=== PATIENT | male | born 1955 | race Caucasian/White ===

== ENCOUNTER 2017-01-26 08:33 | Emergency (ER) | payer MEDICARE ==
[2017-01-26 08:54] VITALS: BP 175/89
[2017-01-26] MEDS ORDERED: DECADRON IM ONE (09:26)
[2017-01-26] MEDS ORDERED: CIPRODEX TP SCH (09:26)
[2017-01-26] MEDS ORDERED: LEVAQUIN PO ONE (09:28)
--- NOTE | 2017-01-26 09:30 | Emergency Department Report ---
ED ENT HPI - General Chief complaint: Earache Stated complaint: RT EAR PAIN/ RT SIDE FACE SWOLLEN Time Seen by Provider: 01/26/17 09:05 Source: patient Mode of arrival: Ambulatory Limitations: Physical Limitation - History of Present Illness MD complaint: ear pain -: Gradual Location: R ear Severity: moderate Severity scale (0 -10): 9 Quality: aching Consistency: constant Improves with: none Worsens with: none Associated Symptoms: discharge from ear. denies: fever, cough, gum swelling, toothache, pain with swallowing, sore throat, tinnitus, hearing loss, rhinorrhea (7d ear ache. no fever. non ill appearing. ) - Related Data Previous Rx's Medication Instructions Recorded Last Taken Type Cipro/Dexameth 0.3/0.1% [Ciprodex 4 drops OT BID #1 bottle 01/26/17 Unknown Rx OTIC] Ciprofloxacin HCl [Ciprofloxacin 500 mg PO Q12H #20 tab 01/26/17 Unknown Rx TAB] traMADol [Ultram] 50 mg PO Q6HR PRN #10 tablet 01/26/17 Unknown Rx Allergies Allergy/AdvReac Type Severity Reaction Status Date / Time No Known Allergies Allergy Unverified 01/26/17 08:47 ED Dental HPI - General Chief complaint: Earache Stated complaint: RT EAR PAIN/ RT SIDE FACE SWOLLEN Time Seen by Provider: 01/26/17 09:05 Source: patient Mode of arrival: Ambulatory Limitations: Physical Limitation - Related Data Previous Rx's Medication Instructions Recorded Last Taken Type Cipro/Dexameth 0.3/0.1% [Ciprodex 4 drops OT BID #1 bottle 01/26/17 Unknown Rx OTIC] Ciprofloxacin HCl [Ciprofloxacin 500 mg PO Q12H #20 tab 01/26/17 Unknown Rx TAB] traMADol [Ultram] 50 mg PO Q6HR PRN #10 tablet 01/26/17 Unknown Rx Allergies Allergy/AdvReac Type Severity Reaction Status Date / Time No Known Allergies Allergy Unverified 01/26/17 08:47 ED Review of Systems ROS: Stated complaint: RT EAR PAIN/ RT SIDE FACE SWOLLEN Other details as noted in HPI Comment: All other systems reviewed and negative Constitutional: no symptoms reported, see HPI. denies: chills, diaphoresis, fever, malaise, weakness Eyes: as per HPI. denies: eye pain, eye discharge, vision change ENT: as per HPI, ear pain. denies: throat pain, dental pain (no teeth), hearing loss, epistaxis, congestion Respiratory: no symptoms reported, see HPI. denies: cough, orthopnea Cardiovascular: as per HPI. denies: chest pain, palpitations, dyspnea on exertion, orthopnea Endocrine: no symptoms reported, see HPI. denies: excessive sweating, flushing , intolerance to cold, intolerance to heat Gastrointestinal: as per HPI. denies: abdominal pain, nausea, vomiting Genitourinary: as per HPI. denies: urgency, dysuria Musculoskeletal: as per HPI. denies: back pain Skin: as per HPI. denies: rash, lesions Neurological: as per HPI. denies: headache, weakness Psychiatric: as per HPI. denies: anxiety, depression Hematological/Lymphatic: as per HPI. denies: easy bleeding ED Past Medical Hx - Past Medical History Hx Hypertension: Yes (NO MEDS) Additional medical history: CHRONIC BACK PAIN - Surgical History Hx Appendectomy: Yes (CHILD) Additional Surgical History: BACK SURGERY - Family History Family history: no significant - Social History Smoking Status: Current Every Day Smoker Substance Use Type: Alcohol - Medications Home Medications: Home Medications Medication Instructions Recorded Confirmed Last Taken Type Cipro/Dexameth 0.3/0.1% [Ciprodex 4 drops OT BID #1 bottle 01/26/17 Unknown Rx OTIC] Ciprofloxacin HCl [Ciprofloxacin 500 mg PO Q12H #20 tab 01/26/17 Unknown Rx TAB] traMADol [Ultram] 50 mg PO Q6HR PRN #10 tablet 01/26/17 Unknown Rx ED Physical Exam - General Limitations: Physical Limitation General appearance: alert - Head Head exam: Present: atraumatic - Eye Eye exam: Present: PERRL - ENT ENT exam: Present: normal exam, normal orophraynx, mucous membranes moist. Absent: mucous membranes dry, normal external ear exam - Expanded ENT Exam Expanded Ear exam: Present: other (swelling of soft tissue of the r ear). Absent: auricular hematoma, auricular trauma TM/Canal exam: Erythema: Right TM, Canal Discharge: Right TM (clear no odor no open skin), Canal Tenderness: Right TM Mouth exam: Present: normal external inspection, tongue normal. Absent: drooling, trismus, muffled voice, tongue elevation, laceration Teeth exam: Present: normal inspection, other (no teeth). Absent: dental caries Throat exam: Positive: normal inspection. Negative: tonsillar erythema, tonsillomegaly, tonsillar exudate, R peritonsillar mass, L peritonsillar mass - Neck Neck exam: Present: normal inspection, full ROM, lymphadenopathy (r pre auricular). Absent: tenderness, meningismus - Respiratory Respiratory exam: Present: normal lung sounds bilaterally. Absent: respiratory distress, wheezes, rales - Cardiovascular Cardiovascular Exam: Present: regular rate - GI/Abdominal GI/Abdominal exam: Present: soft - Rectal Rectal exam: Present: deferred - Extremities Exam Extremities exam: Present: normal inspection, other (debility he reports cbp. uses cane) - Back Exam Back exam: Present: normal inspection - Neurological Exam Neurological exam: Present: alert, altered, oriented X3 - Psychiatric Psychiatric exam: Present: normal affect, normal mood - Skin Skin exam: Present: warm, dry, intact, normal color ED Course Vital Signs 01/26/17 08:51 Temperature 98.8 F Pulse Rate 89 Respiratory 18 Rate Blood Pressure 175/89 O2 Sat by Pulse 100 Oximetry - Reevaluation(s) Reevaluation #1: 01/26/17 10:04 see MDM section medicated per rn dc poc reviewed pt verbalizes understanding ED Medical Decision Making - Medical Decision Making to er r ear pain several days clear drainage swelling of canal tm intact hearing intact no wax swelling ant auricular nodes no fever non ill appearing hx wax impactions in ear no facial drooping closes eyes swallowing and speaking wo difficulty no pain over mastoid or parotid areas. - Differential Diagnosis mastoiditis/parotidis/bells palsy/ om/oe Critical care attestation.: If time is entered above; I have spent that time in minutes in the direct care of this critically ill patient, excluding procedure time. ED Disposition Clinical Impression: External otitis of right ear, Otalgia of right ear Disposition: DC- TO HOME OR SELFCARE Is pt being admited?: No Does the pt Need Aspirin: No Condition: Stable Instructions: Otitis Externa (ED), Otitis Media (ED) Additional Instructions: warm compresses to ear do not stick anything in ear take meds as ordered follow up pcp or ENT this week. Referrals: PRIMARY CARE,MD [Primary Care Provider] - 3-5 Days Time of Disposition: 10:08
== END 2017-01-26 10:58 | disposition home or self-care (01) ==
LOC: ED 08:33
DX: H66.91 Otitis media, unspecified, right ear (principal); H92.01 Otalgia, right ear; I10 Essential (primary) hypertension; G89.29 Other chronic pain; F17.200 Nicotine dependence, unspecified, uncomplicated
CPT/HCPCS: 96372; 99282; J1100

== ENCOUNTER 2018-04-07 12:46 | Emergency (ER) | payer MEDICARE ==
[2018-04-07] MEDS ORDERED: DECADRON IM ONE (14:54)
[2018-04-07] MEDS ORDERED: BENADRYL PO ONE (14:54)
--- NOTE | 2018-04-07 14:58 | Emergency Department Report ---
ED Rash HPI - HPI Chief Complaint: Skin Rash Stated Complaint: POISON ROBERT Time Seen by Provider: 04/07/18 14:49 ED Review of Systems ROS: Stated complaint: POISON ROBERT Other details as noted in HPI Comment: All other systems reviewed and negative Constitutional: denies: chills, fever Eyes: denies: eye pain ENT: ear pain. denies: throat pain Respiratory: no symptoms reported Cardiovascular: as per HPI. denies: chest pain Endocrine: no symptoms reported. denies: intolerance to cold Gastrointestinal: denies: abdominal pain, nausea Genitourinary: denies: urgency, dysuria Musculoskeletal: denies: back pain Skin: rash. denies: lesions Neurological: denies: headache, weakness Psychiatric: denies: anxiety, depression Hematological/Lymphatic: denies: easy bleeding ED Past Medical Hx - Past Medical History Hx Hypertension: Yes (NO MEDS) Additional medical history: CHRONIC BACK PAIN - Surgical History Hx Appendectomy: Yes (CHILD) Additional Surgical History: BACK SURGERY - Social History Smoking Status: Current Every Day Smoker Substance Use Type: Alcohol - Medications Home Medications: Home Medications Medication Instructions Recorded Confirmed Last Taken Type Cipro/Dexameth 0.3/0.1% [Ciprodex 4 drops OD BID #1 bottle 04/07/18 Unknown Rx OTIC] diphenhydrAMINE [Benadryl CAP] 50 mg PO BID PRN #30 capsule 04/07/18 Unknown Rx predniSONE [Deltasone] 50 mg PO QDAY #5 tab 04/07/18 Unknown Rx Rash Exam - Exam General: Vital signs noted. No distress. Alert and acting appropriately. HEENT: No Periorbital Edema, No Conjuctival Injection, No Chemosis, No Perioral Edema, No Tongue Edema, No Uvular Edema, No Compromised Airway, No Drooling Lungs: Yes Good Air Exchange, No Wheezes, No Ronchi, No Stridor, No Cough, No Labored Respirations, No Retractions, No Use of Accessory Muscles, No Other Abnormal Lung Sounds Heart: Yes Regular, No Murmur Skin: Yes Maculopapular Rash (poison robert diffuse), Yes Encrustations (r ear), No Urticarial Rash, No Morbilliform rash, No Bulla(e), No Excoriations, No Weeping, No Tenderness, No Erythema, No Edema, No Other Other: Positive: Abdomen Normal, Neurologic Normal, Musculoskeletal Normal ED Course Vital Signs 04/07/18 12:51 Temperature 98.6 F Pulse Rate 92 H Respiratory 18 Rate Blood Pressure 201/96 O2 Sat by Pulse 98 Oximetry - Reevaluation(s) Reevaluation #1: 04/07/18 14:59 bp elevated taking meds but he is agitated due to itching will follow up with pcp ED Medical Decision Making - Medical Decision Making nad vss - Differential Diagnosis poison robert; ear pain Critical care attestation.: If time is entered above; I have spent that time in minutes in the direct care of this critically ill patient, excluding procedure time. ED Disposition Clinical Impression: Poison robert, Ear pain, Otitis externa, Hypertension Disposition: TO HOME OR SELFCARE Is pt being admited?: No Does the pt Need Aspirin: No Condition: Stable Instructions: Poison Robert (ED), Hypertension (ED) Additional Instructions: meds as ordered today cool baths follow up with pcp diet and activity as tolerated Referrals: PRIMARY CARE, [Primary Care Provider] - 3-5 Days OFELIA ASIF MD [Staff Physician] - 3-5 Days Time of Disposition: 14:55
[2018-04-07 15:18] VITALS: BP 194/95
== END 2018-04-07 15:17 | disposition home or self-care (01) ==
LOC: ED 12:46
DX: L23.7 Allergic contact dermatitis due to plants, except food (principal); I10 Essential (primary) hypertension; H60.91 Unspecified otitis externa, right ear; G89.29 Other chronic pain; M54.9 Dorsalgia, unspecified; F17.200 Nicotine dependence, unspecified, uncomplicated
CPT/HCPCS: 96372; 99282; J1100

== ENCOUNTER 2018-12-06 16:34 | Emergency (ER) | payer MEDICARE ==
--- NOTE | 2018-12-06 16:44 | Emergency Department Report ---
Blank Doc - Documentation Documentation: 63 y o male presents to ed cc of rash and itching from exposure to poison carmelo denies any other sx ACC eval
[2018-12-06] MEDS ORDERED: DELTASONE PO ONE (19:42)
[2018-12-06] MEDS ORDERED: BENADRYL PO ONE (19:42)
--- NOTE | 2018-12-06 19:48 | Emergency Department Report ---
ED Rash HPI - HPI Chief Complaint: Skin Rash Stated Complaint: POISON ROBERT Time Seen by Provider: 12/06/18 16:42 Rash Symptoms: Yes Itching, No Facial Swelling, No Tongue/Oral Swelling, No Breathing Difficulties, No Choking Sensation, No Wheezing/Dyspnea, No Peeling, No Blistering, No Fever, No Lightheaded, No Malaise, No Myalgias Severity: moderate Other History: 63 y o male presents to ed cc of rash and itching from exposure to poison robert. denies any other sx ED Review of Systems ROS: Stated complaint: POISON ROBERT Other details as noted in HPI Constitutional: denies: chills, fever Eyes: denies: eye pain, eye discharge, vision change ENT: denies: ear pain, throat pain Respiratory: denies: cough, shortness of breath, wheezing Cardiovascular: denies: chest pain, palpitations Endocrine: no symptoms reported Gastrointestinal: denies: abdominal pain, nausea, diarrhea Genitourinary: denies: urgency, dysuria Musculoskeletal: denies: back pain, joint swelling, arthralgia Skin: rash (bilat upper extrem moderate erythema raised smooth no weeping no fever ) Neurological: denies: headache, weakness, paresthesias Psychiatric: denies: anxiety, depression Hematological/Lymphatic: denies: easy bleeding, easy bruising ED Past Medical Hx - Past Medical History Hx Hypertension: Yes Additional medical history: CHRONIC BACK PAIN - Surgical History Hx Appendectomy: Yes Additional Surgical History: BACK SURGERY - Social History Smoking Status: Current Every Day Smoker Substance Use Type: Alcohol - Medications Home Medications: Home Medications Medication Instructions Recorded Confirmed Last Taken Type Cipro/Dexameth 0.3/0.1% [Ciprodex 4 drops OD BID #1 bottle 04/07/18 Unknown Rx OTIC] diphenhydrAMINE [Benadryl CAP] 50 mg PO BID PRN #30 capsule 04/07/18 Unknown Rx predniSONE [Deltasone] 50 mg PO QDAY #5 tab 04/07/18 Unknown Rx Calamine/Phenol Liquid [Calamine 1 applicatio TP QID PRN #1 bottle 12/06/18 Unknown Rx Phenolated Lotion] Triamcinolone Aceton 0.1% (Nf) 1 applic TP BID 14 Days #1 tube 12/06/18 Unknown Rx [Kenalog (NF)] diphenhydrAMINE [Benadryl CAP] 25 mg PO Q6HR PRN #30 capsule 12/06/18 Unknown Rx predniSONE [Deltasone] 40 mg PO QDAY 5 Days #10 tab 12/06/18 Unknown Rx Rash Exam - Exam General: Vital signs noted. No distress. Alert and acting appropriately. HEENT: No Periorbital Edema, No Conjuctival Injection, No Chemosis, No Perioral Edema, No Tongue Edema, No Uvular Edema, No Compromised Airway, No Drooling Lungs: Yes Good Air Exchange (Normal Breath Sounds), No Wheezes, No Ronchi, No Stridor, No Cough, No Labored Respirations, No Retractions, No Use of Accessory Muscles, No Other Abnormal Lung Sounds Heart: Yes Regular, No Murmur Skin: Yes Urticarial Rash, Yes Excoriations, Yes Erythema, Yes Encrustations, No Maculopapular Rash, No Morbilliform rash, No Bulla(e), No Weeping, No Tenderness, No Edema, No Other Other: Positive: Abdomen Normal, Neurologic Normal, Musculoskeletal Normal ED Course Vital Signs 12/06/18 16:41 Temperature 98.0 F Pulse Rate 96 H Respiratory 16 Rate Blood Pressure 204/82 O2 Sat by Pulse 99 Oximetry ED Medical Decision Making - Medical Decision Making rash is consistent with posion robert, plan calamine lotion, benadryl ,prednisone, triamcinolone, follow up up with pcp in 2-3 days. pt verbalized agreement and understanding of same. Critical care attestation.: If time is entered above; I have spent that time in minutes in the direct care of this critically ill patient, excluding procedure time. ED Disposition Clinical Impression: Poison robert dermatitis Disposition: DC- TO HOME OR SELFCARE Is pt being admited?: No Does the pt Need Aspirin: No Condition: Stable Instructions: Poison Robert (ED) Prescriptions: diphenhydrAMINE [Benadryl CAP] 25 mg PO Q6HR PRN #30 capsule PRN Reason: Itching Calamine/Phenol Liquid [Calamine Phenolated Lotion] 1 applicatio TP QID PRN #1 bottle PRN Reason: itching rash predniSONE [Deltasone] 40 mg PO QDAY 5 Days #10 tab Triamcinolone Aceton 0.1% (Nf) [Kenalog (NF)] 1 applic TP BID 14 Days #1 tube Referrals: BILL ANDINO MD [Primary Care Provider] - 3-5 Days Forms: Work/School Release Form(ED) Time of Disposition: 19:55
[2018-12-06 20:16] VITALS: BP 184/86
== END 2018-12-06 20:16 | disposition home or self-care (01) ==
LOC: ED 16:34
DX: L25.5 Unspecified contact dermatitis due to plants, except food (principal); I10 Essential (primary) hypertension; F17.200 Nicotine dependence, unspecified, uncomplicated
CPT/HCPCS: 99282; J7512

== ENCOUNTER 2019-09-16 09:16 | Emergency (ER) | payer MEDICARE ==
[2019-09-16] MEDS ORDERED: ASPIRIN 325 MG TAB PO ONE (09:28)
--- NOTE | 2019-09-16 10:04 | XRay Report ---
CHEST 1 VIEW INDICATION: Chest Pain COMPARISON: None FINDINGS: Support devices: None Heart: Normal Lungs/Pleura: No acute pulmonary or pleural findings. IMPRESSION: 1. No acute disease. Signer Name: Flo Anderson MD Signed: 09/16/2019 10:00 AM Workstation Name: [id number]
[2019-09-16 10:50] LABS: Basophils % (Auto) 0.9 % (0.0-1.8); Eosinophils # (Auto) 0.1 K/mm3 (0.0-0.4); Eosinophils % (Auto) 1.9 % (0.0-4.3); Hematocrit 46.6 % (35.5-45.6); Hemoglobin 15.7 gm/dl (11.8-15.2); Lymphocytes # (Auto) 2.1 K/mm3 (1.2-5.4); Lymphocytes % (Auto) 42.6 % (13.4-35.0); Mean Corpuscular HGB Conc 34 % (32-34); Mean Corpuscular Volume 96 fl (84-94); Monocytes # (Auto) 0.5 K/mm3 (0.0-0.8); Monocytes % (Auto) 9.8 % (0.0-7.3); Platelet Count 260 K/mm3 (140-440); Red Blood Count 4.85 M/mm3 (3.65-5.03); Red Cell Distribution Width 13.8 % (13.2-15.2)
[2019-09-16 11:06] LABS: BUN/Creatinine Ratio 11; Blood Urea Nitrogen 9 mg/dL (9-20); Calcium 9.9 mg/dL (8.4-10.2); Hemolysis Index 61
[2019-09-16] MEDS ORDERED: cloNIDine 0.2 MG TAB PO ONE (11:44)
--- NOTE | 2019-09-16 11:47 | Emergency Department Report ---
- General Chief Complaint: Dyspnea/Respdistress Stated Complaint: COPD Time Seen by Provider: 09/16/19 11:29 Source: patient Mode of arrival: Ambulatory Limitations: No Limitations - History of Present Illness Initial Comments: 64-year-old male with history of COPD presents to ED with cough x2 weeks. Patient reports very mild shortness of breath, which is worse with his cough. Patient also has history of hypertension, however is noncompliant with antihypertensive medication. Patient also states that he has run out of his inhalers. Patient reports associated watery eyes, but denies runny nose, fever, headache, chest pain, leg pain and swelling, and recent travel outside of [place]. Also denies sick contacts. Patient reports tobacco use. MD Complaint: cough -: week(s) (2) Severity: moderate Consistency: intermittent Improves With: nothing Worsens With: nothing Associated Symptoms: cough, shortness of breath. denies: fever, chills, headache, rhinorrhea, nasal congestion, sore throat, chest pain, nausea, vomiting, diarrhea Treatments Prior to Arrival: none - Related Data Previous Rx's Medication Instructions Recorded Last Taken Type Cipro/Dexameth 0.3/0.1% [Ciprodex 4 drops OD BID #1 bottle 04/07/18 Unknown Rx OTIC] diphenhydrAMINE [Benadryl CAP] 50 mg PO BID PRN #30 capsule 04/07/18 Unknown Rx predniSONE [Deltasone] 50 mg PO QDAY #5 tab 04/07/18 Unknown Rx Calamine/Phenol Liquid [Calamine 1 applicatio TP QID PRN #1 bottle 12/06/18 Unknown Rx Phenolated Lotion] Triamcinolone Aceton 0.1% (Nf) 1 applic TP BID 14 Days #1 tube 12/06/18 Unknown Rx [Kenalog (NF)] diphenhydrAMINE [Benadryl CAP] 25 mg PO Q6HR PRN #30 capsule 12/06/18 Unknown Rx predniSONE [Deltasone] 40 mg PO QDAY 5 Days #10 tab 12/06/18 Unknown Rx Albuterol Sulfate [Proventil Hfa] 2 puff IH Q4HR PRN #1 hfa.aer.ad 09/16/19 Unknown Rx Benzonatate [Tessalon Perles] 100 mg PO Q8HR PRN #20 capsule 09/16/19 Unknown Rx hydroCHLOROthiazide [HCTZ] 25 mg PO QDAY #30 tablet 09/16/19 Unknown Rx predniSONE [Deltasone] 50 mg PO QDAY #5 tab 09/16/19 Unknown Rx Allergies Allergy/AdvReac Type Severity Reaction Status Date / Time No Known Allergies Allergy Verified 12/06/18 16:35 ED Review of Systems ROS: Stated complaint: COPD Other details as noted in HPI Comment: All other systems reviewed and negative Constitutional: denies: chills, fever Eyes: other (Reports watery eyes) Respiratory: cough, shortness of breath Cardiovascular: denies: chest pain Musculoskeletal: other (Denies leg pain or swelling) ED Past Medical Hx - Past Medical History Previous Medical History?: Yes Hx Hypertension: Yes Hx COPD: Yes Additional medical history: CHRONIC BACK PAIN - Surgical History Past Surgical History?: Yes Hx Appendectomy: Yes Additional Surgical History: BACK SURGERY - Social History Smoking Status: Current Every Day Smoker Substance Use Type: Alcohol - Medications Home Medications: Home Medications Medication Instructions Recorded Confirmed Last Taken Type Cipro/Dexameth 0.3/0.1% [Ciprodex 4 drops OD BID #1 bottle 04/07/18 Unknown Rx OTIC] diphenhydrAMINE [Benadryl CAP] 50 mg PO BID PRN #30 capsule 04/07/18 Unknown Rx predniSONE [Deltasone] 50 mg PO QDAY #5 tab 04/07/18 Unknown Rx Calamine/Phenol Liquid [Calamine 1 applicatio TP QID PRN #1 bottle 12/06/18 Unknown Rx Phenolated Lotion] Triamcinolone Aceton 0.1% (Nf) 1 applic TP BID 14 Days #1 tube 12/06/18 Unknown Rx [Kenalog (NF)] diphenhydrAMINE [Benadryl CAP] 25 mg PO Q6HR PRN #30 capsule 12/06/18 Unknown Rx predniSONE [Deltasone] 40 mg PO QDAY 5 Days #10 tab 12/06/18 Unknown Rx Albuterol Sulfate [Proventil Hfa] 2 puff IH Q4HR PRN #1 hfa.aer.ad 09/16/19 Unknown Rx Benzonatate [Tessalon Perles] 100 mg PO Q8HR PRN #20 capsule 09/16/19 Unknown Rx hydroCHLOROthiazide [HCTZ] 25 mg PO QDAY #30 tablet 09/16/19 Unknown Rx predniSONE [Deltasone] 50 mg PO QDAY #5 tab 09/16/19 Unknown Rx ED Physical Exam - General Limitations: No Limitations General appearance: alert, in no apparent distress - Head Head exam: Present: atraumatic, normocephalic - Eye Eye exam: Present: normal appearance, EOMI - ENT ENT exam: Present: mucous membranes moist - Neck Neck exam: Present: normal inspection - Respiratory Respiratory exam: Present: normal lung sounds bilaterally. Absent: respiratory distress, wheezes - Cardiovascular Cardiovascular Exam: Present: regular rate, normal rhythm - GI/Abdominal GI/Abdominal exam: Present: soft. Absent: distended, tenderness - Extremities Exam Extremities exam: Present: normal inspection. Absent: pedal edema, calf tenderness - Neurological Exam Neurological exam: Present: alert, oriented X3 - Psychiatric Psychiatric exam: Present: normal affect, normal mood - Skin Skin exam: Present: warm, dry, intact, normal color. Absent: rash ED Course Vital Signs 09/16/19 09/16/19 09/16/19 09:22 09:50 11:21 Temperature 98.1 F 98.6 F Pulse Rate 83 71 78 Respiratory 18 18 18 Rate Blood Pressure 250/103 138/79 Blood Pressure 237/109 [Left] O2 Sat by Pulse 99 94 96 Oximetry 09/16/19 09/16/19 09/16/19 11:51 11:53 11:56 Temperature Pulse Rate 79 85 Respiratory 18 18 Rate Blood Pressure 221/106 Blood Pressure 221/106 [Left] O2 Sat by Pulse 99 100 Oximetry 09/16/19 13:09 Temperature Pulse Rate 70 Respiratory 18 Rate Blood Pressure Blood Pressure 165/60 [Left] O2 Sat by Pulse 100 Oximetry ED Medical Decision Making - Lab Data Result diagrams: 09/16/19 10:30 09/16/19 10:30 - Radiology Data Radiology results: report reviewed, image reviewed - Medical Decision Making - afebrile - not hypoxic or tachypneic - no resp distress - labs unremarkable - BP improved w/ clonidine - rx given for HCTZ - outpt f/u advised - return precautions given - Differential Diagnosis COPD, uncontrolled HTN, pneumonia Critical care attestation.: If time is entered above; I have spent that time in minutes in the direct care of this critically ill patient, excluding procedure time. ED Disposition Clinical Impression: Uncontrolled hypertension, COPD (chronic obstructive pulmonary disease) Disposition: DC- TO HOME OR SELFCARE Is pt being admited?: No Condition: Stable Instructions: Chronic Obstructive Pulmonary Disease (ED), Hypertension (ED) Prescriptions: predniSONE [Deltasone] 50 mg PO QDAY #5 tab hydroCHLOROthiazide [HCTZ] 25 mg PO QDAY #30 tablet Albuterol Sulfate [Proventil Hfa] 2 puff IH Q4HR PRN #1 hfa.aer.ad PRN Reason: Wheezing Benzonatate [Tessalon Perles] 100 mg PO Q8HR PRN #20 capsule PRN Reason: Cough Referrals: [facility] [Provider Group] - 3-5 Days KODY JEAN MD [Staff Physician] - 3-5 Days [facility] [Outside] - 3-5 Days [facility] [Outside] - 3-5 Days Time of Disposition: 12:26
[2019-09-16 13:12] VITALS: BP 165/60
== END 2019-09-16 13:13 | disposition home or self-care (01) ==
LOC: ED 09:16
DX: J44.9 Chronic obstructive pulmonary disease, unspecified (principal); I10 Essential (primary) hypertension; F17.200 Nicotine dependence, unspecified, uncomplicated; Z79.899 Other long term (current) drug therapy
CPT/HCPCS: 36415; 71045; 80048; 84484; 85025; 93005; 93010

== ENCOUNTER 2019-11-16 12:32 | Emergency (ER) | payer MEDICARE ==
[2019-11-16] MEDS ORDERED: predniSONE 20 MG TAB PO ONE (14:50)
--- NOTE | 2019-11-16 14:50 | Emergency Department Report ---
ED Rash HPI - HPI Chief Complaint: Skin Rash Stated Complaint: POISON ROBERT Time Seen by Provider: 11/16/19 14:37 Duration: 2 Days Location: Upper Extremities Suspected Cause: Plant (poison IV) Rash Symptoms: Yes Itching, Yes Blistering, No Facial Swelling, No Tongue/Oral Swelling, No Breathing Difficulties, No Choking Sensation, No Wheezing/Dyspnea, No Peeling, No Fever, No Lightheaded, No Malaise, No Myalgias Severity: mild Other History: 64 year old male presents to ED c/o rash to bilateral wrist/forearms. Onset yesterday. He states he was exposed to poison IV while helping a friend clean his yard. He states its pruritic in nature. Patient also c/o cough he has had for about 4mths. He states he has been evaluated here for this cough and he was told it was bronchitis. According to his listed PMHX he does have hx of COPD. He states cough is mainly dry but productive at times. He also has had intermittent wheezing. He states he needs a refill on his albuterol MDI, he has been out for about 1 mth and something for cough. He is also requesting a refill on his BP medication (HCTZ) which he has been out of for 2 weeks. He states denies any DAVIS, dizziness, vision changes, focal weakness, cp, numbness tingling. He also denies any SOB. Denies any fever, chills. ED Review of Systems ROS: Stated complaint: POISON ROBERT Other details as noted in HPI Constitutional: denies: chills, fever ENT: denies: ear pain, throat pain Respiratory: cough, wheezing. denies: shortness of breath, SOB with exertion, SOB at rest, stridor Cardiovascular: denies: chest pain, palpitations Gastrointestinal: denies: abdominal pain, nausea, diarrhea Musculoskeletal: denies: back pain, joint swelling, arthralgia Skin: rash Neurological: denies: headache, weakness, paresthesias Psychiatric: denies: anxiety, depression ED Past Medical Hx - Past Medical History Previous Medical History?: Yes Hx Hypertension: Yes Hx COPD: Yes Additional medical history: CHRONIC BACK PAIN - Surgical History Past Surgical History?: Yes Hx Appendectomy: Yes Additional Surgical History: BACK SURGERY - Social History Smoking Status: Current Every Day Smoker Substance Use Type: Marijuana - Medications Home Medications: Home Medications Medication Instructions Recorded Confirmed Last Taken Type Albuterol Sulfate [Proair 2 puff IH Q4HR PRN #1 aer.pw.bas 11/16/19 Unknown Rx Digihaler] Benzonatate [Tessalon Perles] 100 mg PO Q8HR PRN #20 capsule 11/16/19 Unknown Rx Prednisone [predniSONE 10 mg 10 mg PO .TAPER #1 tab.ds.pk 11/16/19 Unknown Rx (6-Day Pack, 21 Tabs)] diphenhydrAMINE [Benadryl CAP] 25 mg PO Q6HR PRN #30 capsule 11/16/19 Unknown Rx hydroCHLOROthiazide [HCTZ] 25 mg PO QDAY #30 tablet 11/16/19 Unknown Rx Rash Exam - Exam General: Vital signs noted. No distress. Alert and acting appropriately. HEENT: No Periorbital Edema, No Conjuctival Injection, No Chemosis, No Perioral Edema, No Tongue Edema, No Uvular Edema, No Compromised Airway, No Drooling Lungs: Yes Good Air Exchange, Yes Wheezes (Mainly right lung henry, midly in lower left lung henry), No Ronchi, No Stridor, No Cough, No Labored Respirations, No Retractions, No Use of Accessory Muscles, No Other Abnormal Kimmy ng Sounds Heart: Yes Regular, No Murmur Skin: Yes Maculopapular Rash (mild maculopapular vesicular erythematous rash scattered on right wrist/distal right forearm and left forerm (right worse than left) ), Yes Erythema Other: Positive: Neurologic Normal ED Course Vital Signs 11/16/19 12:45 Temperature 98.0 F Pulse Rate 83 Respiratory 20 Rate Blood Pressure 240/111 O2 Sat by Pulse 99 Oximetry ED Medical Decision Making - Medical Decision Making Pt presents to ED with rash secondary to being exposed to poison to bilateral forearm/wrist. Patient does have mild posion iv type dermatitis to bilateral to bilaeral forearm/wrist. Patient also requesting refills on his albuterol MDI and something for cough. He has hx of Bronchitis likely secondary to his COPD. He states he has had this cough for about 4 mths. Not any worse recently and he has had associated intermittent wheezing. Pt does have wheezing on exam, right lung more than left. Offered to do xray but he refused. States he just had one when he was here a few weeks back. He is not in any respiratory distress and he is not hypoxic or tachypnic. Pt also requesting refill on his BP meds, he has been out for 2 weeks. His BP is noted to be elevated today in ED but he has no c/o DAVIS, cp, or neuro symptoms. He is awake, alert, oriented x3 and neurologically intact. Patient does currently have PCP. Informed patient that in addition to tx his poison iv rash, I will also refill his meds and give him something for cough but expressed to him he need to start taking his BP medications today and I will give him referral to local PCP for f/u. Patient expresses understanding of instructions and agrees with plan. Patient stable at time of d/c. Critical care attestation.: If time is entered above; I have spent that time in minutes in the direct care of this critically ill patient, excluding procedure time. ED Disposition Clinical Impression: Poison robert dermatitis, Chronic bronchitis, Uncontrolled hypertension Disposition: TO HOME OR SELFCARE Is pt being admited?: No Does the pt Need Aspirin: No Condition: Stable Instructions: Poison Robert (ED), Chronic Bronchitis (ED), Hypertension (ED) Prescriptions: diphenhydrAMINE [Benadryl CAP] 25 mg PO Q6HR PRN #30 capsule PRN Reason: Itching hydroCHLOROthiazide [HCTZ] 25 mg PO QDAY #30 tablet Prednisone [predniSONE 10 mg (6-Day Pack, 21 Tabs)] 10 mg PO .TAPER #1 tab.ds.pk Albuterol Sulfate [Proair Digihaler] 2 puff IH Q4HR PRN #1 aer.pw.bas PRN Reason: Dysnea/Cough Benzonatate [Tessalon Perles] 100 mg PO Q8HR PRN #20 capsule PRN Reason: Cough Referrals: BILL ANDINO MD [Staff Physician] - 3-5 Days Time of Disposition: 15:03
[2019-11-16] MEDS ORDERED: hydrOXYzine HCL 25 MG TAB PO ONE (15:00)
[2019-11-17 13:24] VITALS: BP 240/111
== END 2019-11-16 15:16 | disposition home or self-care (01) ==
LOC: ED 12:32
DX: J42 Unspecified chronic bronchitis (principal); L23.7 Allergic contact dermatitis due to plants, except food; I10 Essential (primary) hypertension; F17.200 Nicotine dependence, unspecified, uncomplicated; F12.90 Cannabis use, unspecified, uncomplicated; Z79.899 Other long term (current) drug therapy; Z90.49 Acquired absence of other specified parts of digestive tract; Z98.890 Other specified postprocedural states
CPT/HCPCS: 99282; J7512

== ENCOUNTER 2020-06-07 10:15 | Emergency (ER) | payer MEDICARE ==
[2020-06-07 10:40] VITALS: BP 184/83
--- NOTE | 2020-06-07 11:53 | Emergency Department Report ---
Chief Complaint: Skin Rash Stated Complaint: POISON ROBERT Time Seen by Provider: 06/07/20 11:46 - HPI History of Present Illness: Patient is a 64-year-old male presents emergency room with complaints of poison robert to the right leg that occurred few days ago. He states he was out working in the yard. He has associated itching. He states he also has some mild irritation to the left ear. He denies any hearing disturbances or ear drainage. Patient is also inquiring what he can use [id number] for athlete's foot. He denies any ulcers of the feet, feet drainage, swelling. He has a past medical history of hypertension and COPD. No allergies to medications. Vitals with mildly elevated blood pressure, patient has chronic hypertension He is not having any complaints related to his blood pressure, discussed the importance of taking his medication prescribed by his primary care doctor, following up with a primary care doctor, lifestyle modifications On exam: Non toxic appearing, no acute distress atraumatic, normocephalic normal appearance of the eyes, PERRL, EOMI, no periorbital edema or ecchymosis moist mucus membranes, normal oropharynx, normal TMs and canals bilaterally, mild area of dry skin present to the left pinna, no edema, no erythema, no drainage, no blistering regular heart rate and rhythm, no gallops, no rubs, no murmurs breath sounds are clear bilaterally, no w/r/r, no respiratory distress, no accessory muscle use, no stridor A&O x4, no focal neuro deficit skin is warm, dry, there is a small maculopapular rash that is erythematous with some vesicles, no crusting, no blistering, no skin denuding, no necrosis Mild scaling and erythema between the webs of the toes, no ulceration, no edema, no drainage Patient has a very mild area of poison robert dermatitis present to the right posterior knee He has a area of mild dry skin present to the left ear but no signs of otitis media, otitis externa, cellulitis, abscess, infection He also has mild tinea pedis Discussed supportive care and symptomatic treatment with patient Patient be referred to primary care doctor Patient given multiple resources Discussed return precautions Medical screening examination performed there is no threat to life or limb at this time - Exam Vital Signs: Vital Signs 06/07/20 10:34 Temperature 98.1 F Pulse Rate 101 H Respiratory 17 Rate Blood Pressure 184/83 O2 Sat by Pulse 100 Oximetry MSE screening note: Focused history and physical exam performed. Due to findings the following was ordered: ED Disposition for MSE Clinical Impression: Poison robert dermatitis Disposition: MED SCREENING EXAM-LEFT Is pt being admited?: No Does the pt Need Aspirin: No Condition: Stable Instructions: Poison Robert Dermatitis, [id number] Additional Instructions: May use the hydrocortisone cream [id number]. May use a Benadryl cream for itching. May use a calamine lotion. Please do not scratch the area. For your athlete's foot may use a [id number] Lotrimin and powder for athlete's foot. Please follow-up with a primary care doctor. It is very important that you follow-up with a primary care doctor. Return to emergency room for any new or worsening symptoms. Referrals: BILL ANDINO MD [Staff Physician] - 2-3 Days [facility] [Provider Group] - 2-3 Days [facility] [address], [LAB/CONTRACT] - 2-3 Days Time of Disposition: 11:50 Print Language: GREEK
== END 2020-06-07 12:24 | disposition left against medical advice (07) ==
LOC: ED 10:15
DX: L23.7 Allergic contact dermatitis due to plants, except food (principal); Z53.21 Procedure and treatment not carried out due to patient leaving prior to being seen by health care provider